=== PATIENT | female | born 1965 | race Caucasian/White ===

== ENCOUNTER 2017-01-31 14:34 | Emergency (ER) | payer OTHER ==
--- NOTE | ~2017-01-31 | EKG ---
PATIENT: MALVIN BLOCK UNIT #: [id number] Ventricular Rate: 75 BPM Atrial Rate: 75 BPM P-R Interval: 208 ms QRS Duration: 144 ms Q-T Interval: 428 ms QTC Calculation(Bezet): 477 ms P [place]: 59 degrees Calculated R [place]: 72 degrees Calculated T [place]: 37 degrees Diagnosis Line: Normal sinus rhythm Diagnosis Line: Possible Left atrial enlargement Diagnosis Line: Right bundle branch block Diagnosis Line: Abnormal ECG Diagnosis Line: No previous ECGs available Diagnosis Line: Confirmed by CHE WANG MD ([id number]) on Diagnosis Line: 02/01/2017 5:14:50 PM INTERPRETING MD: KENDALL
--- NOTE | ~2017-01-31 | CR170 ---
[facility] A Service of [facility] & [facility] RADIOLOGY TEXT RESULTS PATIENT: AMLVIN BLOCK LOCATION: [facility] : 61 UNIT #: [id number] AGE: [address]: Brian Carroll MD SEX: F ORDER DR: [id number] [facility] [address] [place], [place] [address] [id number] E MR#: [id number] Acc #: [id number] NAME: MALVIN BLOCK : 1965 SEX: F STUDY DATE/TIME: 01/31/2017 15:48 UNIT: [facility] ROOM: STUDY DESCRIPTION: CR Knee 2 Views Rt Attending Physician: Brian Carroll M.D. Ordering Physician: Brian Carroll M.D. Primary Care Physician: Shira Cohn M.D. MEDICAL IMAGING REPORT This report is preliminary unless electronic signature is present EXAM Right knee series, 01/31/2017 HISTORY Trauma, fell on concrete porch. Tripped at [facility]. Swelling in the lower extremity. Severe right lower leg and hip pain. FINDINGS AP and lateral radiographs of the right knee are presented. Study is abnormal. Comminuted fracture of the distal right femur. There is a dominant transverse slightly oblique fracture plane involving the distal shaft at a level about a 9.0-10.0 cm from the articular surface. The dominant distal fracture fragments are displaced posteriorly by about 11.0 mm and are angled posteriorly. I believe there is at least one longitudinal fracture plane entering the intercondylar notch. There are fracture planes probably extending into the lateral aspect of the femoral articular surface with patella. There is probably a fracture plane involving the anterior-superior aspect of the lateral femoral condylar articular surface. There are lateral epicondylar fracture fragments. If it would assist in patient management, fracture planes could be further evaluated with CT. The medial and lateral joint space compartments remain normally located. There is moderate narrowing of the medial joint space compartment. There is a small to moderate joint effusion, probably hemarthrosis given the relative density of the fluid in the joint space. I see no fat-fluid level at this time. There is no soft tissue defect or subcutaneous air. Note made of atherosclerotic arterial calcifications. The patella appears intact. Tibia and fibula intact in their visualized extent. Dictated by... Rajeev Marley M.D. THIS IS AN ELECTRONICALLY VERIFIED REPORT [facility] A Service of [facility] & [facility] RADIOLOGY TEXT RESULTS [facility]: MALVIN [id number] 61 UNIT #: [id number] AGE: [address]: Brian Carroll MD SEX: F ORDER DR: Rajeev Marley M.D. at 02/01/2017 6:49 PM JOHN/sam TD: 02/01/2017 10:23 JOB #: [id number] MEDICAL IMAGING REPORT Page 1 of 1 COPY
--- NOTE | ~2017-01-31 | CR21 ---
[facility] A Service of [facility] & [facility] RADIOLOGY TEXT RESULTS PATIENT: MALVIN BLOCK LOCATION: [facility] : 61 UNIT #: [id number] AGE: [address]: Brian Carroll MD SEX: F ORDER DR: [id number] [facility] [address] [place], [place] [address] [id number] E MR#: [id number] Acc #: [id number] NAME: MALVIN BLOCK : 1965 SEX: F STUDY DATE/TIME: 01/31/2017 15:46 UNIT: [facility] ROOM: STUDY DESCRIPTION: CR Ankle Min 3 Views Rt Attending Physician: Brian Carroll M.D. Ordering Physician: Brian Carroll M.D. Primary Care Physician: Shira Cohn M.D. MEDICAL IMAGING REPORT This report is preliminary unless electronic signature is present EXAM Right ankle series HISTORY Trauma. Swelling in lower extremity, severe right lower leg and hip pain. Tripped at [employer]. Fell on concrete porch. FINDINGS AP, lateral and oblique radiographs of the right ankle show no traumatic fracture or malalignment involving the right ankle. Ankle mortise joint is intact. Visualized bones of foot intact. Atherosclerotic arterial calcifications. Coarse linear densities in the subcutaneous fat may in part reflect chronic change and in part reflect acute to subacute edema. There is some skin thickening adjacent to the lateral malleolus and anterior aspect of the ankle favored to be chronic in time course. Correlate clinically. There is no soft tissue defect, subcutaneous air or radiodense foreign body. Dictated by... Rajeev Marley M.D. THIS IS AN ELECTRONICALLY VERIFIED REPORT Rajeev Marley M.D. at 02/01/2017 6:49 PM JOHN/bhanu TD: 02/01/2017 10:21 JOB #: [id number] MEDICAL IMAGING REPORT Page 1 of 1 COPY
--- NOTE | ~2017-01-31 | CR107 ---
[facility] A Service of [facility] & [facility] RADIOLOGY TEXT RESULTS PATIENT: MALVIN BLOCK LOCATION: [facility] : 61 UNIT #: [id number] AGE: [address]: Brian Carroll MD SEX: F ORDER DR: [id number] [facility] [address] [place], [place] [address] [id number] E MR#: [id number] Acc #: [id number] NAME: MALVIN BLOCK : 1965 SEX: F STUDY DATE/TIME: 01/31/2017 15:53 UNIT: [facility] ROOM: STUDY DESCRIPTION: CR Femur 2 Views Rt Attending Physician: Brian Carroll M.D. Ordering Physician: Brian Carroll M.D. Primary Care Physician: Shira Cohn M.D. MEDICAL IMAGING REPORT This report is preliminary unless electronic signature is present EXAM Right femur series 01/31/2017. HISTORY Trauma. Tripped at [employer] and fell on concrete porch. Severe right lower leg and hip pain. Question fracture. FINDINGS AP and oblique views of the proximal right femur show no proximal femoral fracture. Please see knee series for discussion of comminuted distal right femoral fracture. Moderate narrowing of the right hip joint. Periarticular soft tissues unremarkable. Atherosclerotic arterial calcifications. Linear densities in the subcutaneous fat may in part reflect chronic change and in part, some degree of acute edema. Correlate clinically. Study degraded by extensive overlying clothing/bed clothing artifact. The visualized portions of the bony pelvis are unremarkable. Dictated by... Rajeev Marley M.D. THIS IS AN ELECTRONICALLY VERIFIED REPORT Rajeev Marley M.D. at 02/01/2017 6:49 PM JOHN/gilmer TD: 02/01/2017 10:26 JOB #: [id number] MEDICAL IMAGING REPORT Page 1 of 1 COPY
--- NOTE | ~2017-01-31 | CR151 ---
[facility] A Service of [facility] & [facility] RADIOLOGY TEXT RESULTS PATIENT: MALVIN BLOCK LOCATION: [facility] : 61 UNIT #: [id number] AGE: [address]: Brian Carroll MD SEX: F ORDER DR: [id number] [facility] [address] [place], [place] [address] [id number] E MR#: [id number] Acc #: [id number] NAME: MALVIN BLOCK : 1965 SEX: F STUDY DATE/TIME: 01/31/2017 15:54 UNIT: [facility] ROOM: STUDY DESCRIPTION: CR Hip Min 2 Views Rt Attending Physician: Brian Carroll M.D. Ordering Physician: Brian Carroll M.D. Primary Care Physician: Shira Cohn M.D. MEDICAL IMAGING REPORT This report is preliminary unless electronic signature is present EXAM Right hip series, 01/31/2017. HISTORY Severe right lower leg and hip pain. Tripped at [facility] and fell on concrete porch. TECHNIQUE AP radiograph of pelvis presented with frogleg view right hip. FINDINGS The study is somewhat limited secondary to patient's large body habitus. Extensive overlying clothing or bed clothing artifacts. Lower lumbar spine unremarkable. Bony ring of pelvis intact. [id number] narrowing bilateral hip joints. The visualized bilateral proximal femurs are intact. The periarticular soft tissues unremarkable. Visualized bowel gas pattern normal. Atherosclerotic arterial calcifications seen. Dictated by... Rajeev Marley M.D. THIS IS AN ELECTRONICALLY VERIFIED REPORT Rajeev Marley M.D. at 02/01/2017 6:49 PM JOHN/carmen TD: 02/01/2017 10:20 JOB #: [id number] MEDICAL IMAGING REPORT Page 1 of 1 COPY
[2017-01-31 18:12] LABS: BASOPHIL% 0.3 % (0-2.5); EOSINOPHIL# 0.1 X10e3 (0-0.7); EOSINOPHIL% 3.9 % (0.0-7.0); HEMATOCRIT 32.2 % (35.0-45.0); HEMOGLOBIN 10.5 gm/dL (12.0-16.0); LYMPHOCYTE# 0.4 X10e3 (1.0-3.5); LYMPHOCYTE% 12.4 % (17.0-45.0); MEAN CELL VOLUME 100.3 FL (83-96); MEAN CORPUSCULAR HEMOGLOBIN 32.7 PG (28-34); MEAN CORPUSCULAR HGB CONC 32.6 g/dL (30-36); MEAN PLATELET VOLUME 10.6 FL (6.5-11.5); MONOCYTE# 0.2 X10e3 (0-1.0); MONOCYTE% 7.2 % (3.0-12.0); NEUTROPHIL# 2.6 X10e3 (1.5-7.1); NEUTROPHIL% 76.2 % (40-75); PLATELET COUNT 80 X10e3 (140-420); RED BLOOD COUNT 3.21 X10e (3.90-5.30); RED CELL DISTRIBUTION WIDTH 17.9 % (11.0-15.5); WHITE BLOOD COUNT 3.4 X10e3 (4.0-10.5)
[2017-01-31 18:22] LABS: PARTIAL THROMBOPLASTIN TIME 27.5 SECONDS (23.5-31.3); PROTHROMBIN TIME (PATIENT) 11.1 SECONDS (10.0-11.7)
[2017-01-31 18:27] LABS: BUN/CREATININE RATIO 17.5; CALCIUM SERUM 8.7 mg/dL (8.4-10.2); CREATININE SERUM 1.2 mg/dL (0.6-1.4); GLOM FILT RATE Estimated 51.6 mL/min (>60)
[2017-01-31 18:45] LABS: DIFF IND YES
[2017-01-31 18:55] LABS: PLATELET ESTIMATE DECREASED (NORMAL)
[2017-01-31 18:57] LABS: ANISOCYTOSIS SL
== END 2017-01-31 18:55 | disposition hospice, home (50) ==
LOC: CED 14:34
PROVIDERS: Emergency Medicine
DX: S72.401A Unspecified fracture of lower end of right femur, initial encounter for closed fracture (principal); S72.321A Displaced transverse fracture of shaft of right femur, initial encounter for closed fracture; E11.9 Type 2 diabetes mellitus without complications; F17.200 Nicotine dependence, unspecified, uncomplicated; W18.30XA Fall on same level, unspecified, initial encounter; Y92.410 Unspecified street and highway as the place of occurrence of the external cause
CPT/HCPCS: 36415; 73502; 73552; 73560; 73610; 80048; 85025; 85610; 85730; 93005; 96374; 99285; J2270